=== PATIENT | female | born 1990 | race Two or more races ===

== ENCOUNTER 2024-02-07 18:09 | Emergency (ER) | payer OTHER ==
[2024-02-07 18:15] VITALS: BP 148/83; PULSE 128; RESP 18; TEMP 97.9; BMI 41.3
[2024-02-07 20:03] LABS: EPI CELLS 20 /uL (0-25.1); HYALINE CASTS 0 /uL (0-3.1); PH,URINE 5.5 (5.0-8.0); URINE APPEARANCE CLEAR; URINE BACTERIA 190 /uL (0-1359); URINE BILIRUBIN NEGATIVE (NEGATIVE); URINE COLOR YELLOW; URINE GLUCOSE (UA) NEGATIVE (NEGATIVE); URINE KETONE 1+ (NEGATIVE); URINE LEUK ESTERASE NEGATIVE (NEGATIVE); URINE NITRITE NEGATIVE (NEGATIVE); URINE PROTEIN NEGATIVE (NEGATIVE); URINE RBC 32 /uL (0-23.9); URINE WBC 16 /uL (0-25.8)
== END 2024-02-07 20:23 | disposition home or self-care (01) ==
LOC: JER 18:09
DX: O20.9 Hemorrhage in early pregnancy, unspecified (principal); Z3A.19 19 weeks gestation of pregnancy
CPT/HCPCS: 76815-TC; 81003; 87086; 99284-25

== ENCOUNTER 2024-06-07 04:54 | Inpatient (IN) | payer OTHER ==
[2024-06-07] MEDS: ELECTROLYTE-148 SOLN 500 ML IV ONE (06:00)
[2024-06-07] MEDS: ELECTROLYTE-148 SOLN 1,000 ML IV SCH (06:41)
[2024-06-07 06:52] VITALS: BMI 43.4
[2024-06-07 07:24] LABS: BASO % 0.3 % (0-2.0); EOS % 0.5 % (0-4.5); HEMATOCRIT 37.1 % (32.4-45.2); HEMOGLOBIN 12.3 GM/dL (10.7-15.3); LYMPH % 23.9 % (8-40); MCH 25.1 pg (25.7-33.7); MCHC 33.3 g/dl (32.0-36.0); MEAN CELL VOLUME 75.4 fl (80-96); MEAN PLT VOLUME 8.8 fl (7.5-11.1); MONO % 6.3 % (3.8-10.2); PLATELET COUNT 261 10^3/uL (134-434); RBC 4.92 M/mm3 (3.60-5.2); RDW 15.8 % (11.6-15.6); WHITE BLOOD COUNT 9.7 K/mm3 (4.0-10.0)
[2024-06-07 07:28] LABS: INR 0.89 (0.83-1.09); PROTHROMBIN TIME (PATIENT) 10.3 SEC (9.7-13.0)
[2024-06-07 07:31] LABS: ACTIVATED PTT 29.3 SECONDS (25.2-36.5)
[2024-06-07 07:42] LABS: CALCIUM 8.7 mg/dL (8.5-10.1); POTASSIUM 4.2 mmol/L (3.5-5.1)
[2024-06-07 07:43] LABS: BLOOD UREA NITROGEN 7.6 mg/dL (7-18)
[2024-06-07 07:46] LABS: CREATININE 0.5 mg/dL (0.55-1.3)
[2024-06-07] MEDS: CITRIC ACID/SODIUM CITRATE 30 ML UNIT-DOSE CUP PO ONE (08:15)
[2024-06-07] MEDS ORDERED: METHYLERGONOVINE MALEATE 0.2 MG/1 ML AMP IM PRN (08:20)
[2024-06-07] MEDS ORDERED: ACETAMINOPHEN 1000 MG/100 ML BAG IVPB PRN (08:22)
[2024-06-07] MEDS ORDERED: morphine SULFATE/PF 1 MG/2 ML (2cc Syringe - QUVA) ONE (08:38)
[2024-06-07] MEDS ORDERED: ONDANSETRON 4 MG/2 ML VIAL IVPUSH PRN (09:33)
[2024-06-07] MEDS ORDERED: NIFEdipine E.R. 30 MG TABLET PO ONE (11:44)
[2024-06-07] MEDS: NIFEdipine E.R. 30 MG TABLET PO ONE (11:45)
[2024-06-07] MEDS ORDERED: OXYTOCIN 20 UNITS in 0.9% NS 20 UNIT/1,000 ML INFUS.BAG IV ONE ×2 (11:45→21:46)
[2024-06-07] MEDS: OXYTOCIN 20 UNITS in 0.9% NS 20 UNIT/1,000 ML INFUS.BAG IV SCH (11:45)
[2024-06-07] MEDS: FERROUS SO4 325 MG TABLET (FP) PO SCH (12:00)
[2024-06-07] MEDS: PRENATAL VITAMINS W/ FOLIC ACID TABLET (FP) PO SCH (12:01)
[2024-06-07] MEDS ORDERED: oxyCODONE HCL 5 MG TABLET PO PRN ×2 (20:20)
[2024-06-08] MEDS: IBUPROFEN 800 MG/8 ML IJ IVPB PRN (06:03)
[2024-06-08] MEDS ORDERED: BISACODYL 10 MG SUPP.RECT RC PRN (08:20)
[2024-06-08 09:32] LABS: BASO % 0.2 % (0-2.0); EOS % 0.1 % (0-4.5); HEMATOCRIT 32.9 % (32.4-45.2); HEMOGLOBIN 10.8 GM/dL (10.7-15.3); LYMPH % 20.8 % (8-40); MCH 24.7 pg (25.7-33.7); MCHC 32.8 g/dl (32.0-36.0); MEAN CELL VOLUME 75.3 fl (80-96); MEAN PLT VOLUME 8.4 fl (7.5-11.1); MONO % 4.6 % (3.8-10.2); NEUT % 74.3 % (42.8-82.8); PLATELET COUNT 210 10^3/uL (134-434); RBC 4.37 M/mm3 (3.60-5.2); RDW 15.7 % (11.6-15.6); WHITE BLOOD COUNT 9.2 K/mm3 (4.0-10.0)
[2024-06-08] MEDS: ACETAMINOPHEN 325 MG TABLET (FP) PO PRN (10:56)
[2024-06-08] MEDS: DIPHTH,PERTUSS(ACELL),TET 0.5 ML DISP.SYRIN IM ONE (10:57)
[2024-06-08] MEDS: IBUPROFEN 600 MG TABLET (FP) PO PRN (18:23)
[2024-06-08] MEDS: SENNOSIDES/DOCUSATE COMBO (SENNA PLUS) TABLET (UD) PO PRN (19:31)
[2024-06-09] MEDS: SIMETHICONE 80 MG TAB.CHEW (FP) PO PRN (08:44)
[2024-06-09 14:24] LABS: POC NITRAZINE POS
[2024-06-10 09:10] VITALS: BP 130/79; PULSE 70; RESP 18; TEMP 98.2
== END 2024-06-10 13:25 | disposition home or self-care (01) | DRG 540 ==
LOC: JLDR 04:54 → J3W 12:05
PROVIDERS: ADMIT Obstetrics & Gynecology; ATTEND Obstetrics & Gynecology
PROC: 10D00Z1 Extraction of Products of Conception, Low, Open Approach (ICD-10-PCS; principal; 2024-06-07)
DX: O32.1XX0 Maternal care for breech presentation, not applicable or unspecified (principal); O42.913 Preterm premature rupture of membranes, unspecified as to length of time between rupture and onset of labor, third trimester; Z3A.36 36 weeks gestation of pregnancy; Z37.0 Single live birth
CPT/HCPCS: 36415; 80048; 82962; 83986-QW; 85025; 85610; 85730; 86780; 86850; 86900; 86901; 88307-TC; 90715; 94010